=== PATIENT | female | born 1985 | race Caucasian/White ===

== ENCOUNTER → 2018-12-03 09:23 | Outpatient (CLI) | payer OTHER, SELFPAY ==
--- NOTE | 2018-12-03 09:24 | US_ITS ---
US gallbladder HISTORY: Right upper quadrant pain with nausea ITS.REASON: right upper quad pain ORDERING PHYSICIAN: Rocky Morejon MD PATIENT AGE: 33 years Comparison: None FINDINGS: PANCREAS: Unremarkable. No obvious mass or abnormal fluid collection. No ductal dilatation LIVER: No focal liver lesions demonstrated. Homogeneous echogenicity. No intrahepatic biliary ductal dilatation evident RIGHT KIDNEY: Unremarkable. Normal size and echogenicity. No hydronephrosis GALLBLADDER: There are multiple stones present within the gallbladder with gallbladder sludge also noted. No gallbladder wall thickening or pericholecystic fluid or biliary dilatation is evident. IMPRESSION: Cholelithiasis with gallbladder sludge
== END ==
PROVIDERS: Visit Provider Surgery
DX: K82.9 Disease of gallbladder, unspecified (principal)
CPT/HCPCS: 76705

== ENCOUNTER → 2018-12-06 09:38 | Outpatient (CLI) | payer OTHER, SELFPAY ==
[2018-12-06 10:15] LABS: Basophils % 0.7 % (0.1-2.0); Eosinophils # 0.1 K/mm3 (0.0-0.4); Eosinophils % 1.9 % (0.1-12.0); Hematocrit 39.7 % (37.0-47.0); Hemoglobin 12.5 g/dL (12.2-16.2); Lymphocytes # 1.9 K/mm3 (0.7-4.5); Lymphocytes % 36.1 % (10-50); Mean Corpuscular HGB Conc 31.6 g/dL (31.8-35.4); Mean Corpuscular Hemoglobin 25.6 pg (27.0-31.2); Mean Corpuscular Volume 80.9 fl (81-99); Mean Platelet Volume 6.8 fl (7.4-10.4); Monocytes # 0.2 K/mm3 (0.1-1.0); Neutrophils # 3.1 K/mm3 (1.8-7.8); Neutrophils % 57.4 % (37.0-80.0); Platelet Count 250 K/mm3 (142-424); Red Blood Count 4.91 M/mm3 (4.20-5.40); Red Cell Distribution Width 14.9 % (11.5-17.5); White Blood Count 5.4 K/mm3 (4.8-10.8)
[2018-12-06 11:19] LABS: HCG Qualitative, Serum Negative (Negative)
[2018-12-06 11:26] LABS: Alanine Aminotransferase 28 U/L (12-78); Albumin Level 3.9 gm/dL (3.4-5.0); Albumin/Globulin Ratio 1.2 (1.1-1.8); Alkaline Phosphatase 72 U/L (46-116); Anion Gap 14.3 mEq/L (5-15); Aspartate Amino Transferase 16 U/L (15-37); Bilirubin,Total 0.3 mg/dL (0.2-1.0); Blood Urea Nitrogen 13 mg/dL (7-18); Calcium 9.1 mg/dL (8.5-10.1); Carbon Dioxide 24 mmol/L (21.0-32.0); Chloride 105 mmol/L (98-107); Creatinine,Serum 0.82 mg/dL (0.55-1.02); Estimated Glomerular Filt Rate 81 ml/min (>60); GFR (African American) 98 ML/MIN (>60); Globulin 3.2 gm/dl (1.3-3.2); Glucose 103 mg/dL (74-106); Potassium 4.3 mmoL/L (3.5-5.1); Sodium 139 mmol/L (136-145); Total Protein,Serum 7.1 gm/dL (6.4-8.2)
== END ==
PROVIDERS: Visit Provider Surgery
DX: K80.20 Calculus of gallbladder without cholecystitis without obstruction (principal)
CPT/HCPCS: 36415; 80053; 84703; 85025